=== PATIENT | female | born 1945 | race Caucasian/White ===

== ENCOUNTER → 2020-03-25 | Day surgery (SDC) | payer MEDICARE, OTHER ==
[~2020-03-25] MED LIST: ALBUTEROL2.5 MG/31 INH; ALENDRONATE SOD70 MG PO; ANORO ELLIPTA1 EACH INH; CELEXA 20 MG TA20 MG PO; DALIRESP500 MCG PO; IPRATROPIU0.2 MG/1 M INH; MONTELUKAST SODI4 M1 PO; NORCO 5-325 TA1 EAC2 PO; OMEPRAZOLE 20 M20 M1 PO; PROAIR DIGIHAL90 MCG INH; SIMVASTATIN80 MG PO; ZYRTEC10 M2 PO
--- NOTE | ~2020-03-25 | OP ---
[address] [address] OPERATIVE REPORT Name: NEGRO PIERCE Room: [facility]#: [id number] Admission: 03/25/20 Attend Phys: Italo Mccabe II Discharge: Date of : 45 Report #: [id number] THIS REPORT FOR: //name// cc: Arash Lucas Timothy J. ~ CC: Italo Lucas DATE OF SERVICE: 03/25/2020 PREOPERATIVE DIAGNOSIS: Right distal radius fracture, greater than 3 parts. POSTOPERATIVE DIAGNOSIS: Right distal radius fracture, greater than 3 parts. PROCEDURE: Right distal radius fracture, greater than 3 parts open reduction and internal fixation. SURGEON: Italo Mccabe II, DO EDUCATIONAL SPEECH LANGUAGE CLINICIAN: LEANN Johnson ANESTHESIA: Per operative record. ESTIMATED BLOOD LOSS: Minimal. ANTIBIOTICS: Per operative record. DRAINS: None. COMPLICATIONS: None. CONDITION: The patient is stable to recovery room. DESCRIPTION OF PROCEDURE: The patient was taken to the operative suite and placed supine on the operative table, given appropriate anesthesia. The patient had well-padded tourniquet applied to the affected upper extremity, which was inflated to 250 mmHg after Esmarch exsanguination for the duration of procedure. The arm was sterilely prepped and draped. Surgery began by incision of the FCR tendon. This was carried down to the subcutaneous tissues. The distal radius fracture was visualized with fluoroscopic evaluation and open reduction in near anatomic fashion was performed with multiple fracture fragments and held with Shandon and reduction forceps. ____ was then applied to the volar radius, secured utilizing the sliding hole with a nonlocking screw and visualized to be in an excellent position on fluoroscopy, placing locking screws to the plate and fracture fragments were secured in near anatomic alignment and ____. This was then assessed in the AP and lateral views [place] [address] OPERATIVE REPORT Name: NEGRO PIERCE Room: [facility]#: [id number] Admission: 03/25/20 Attend Phys: Italo Mccabe II Discharge: Date of : 45 Report #: [id number] with no violation of the joint capsule by any of the screws. Irrigation was then performed of the wound. It was then closed with Vicryl and Monocryl in running fashion. Sterile dressing and splint and Dermabond was applied. The patient transported to recovery room in stable condition. Counts were correct throughout the procedure. By: [id number] Mccabe II, DO /nt
[2020-03-25 08:49] LABS: HEMATOCRIT 37.6 % (37.0-47.0); MCH 31.3 pg (26.0-34.0); MCHC 34.5 g/dL (28.0-37.0); MCV 90.8 fL (80.0-100.0); RBC 4.14 mil/uL (4.20-5.00); WBC 11.8 thou/uL (4.0-11.0)
[2020-03-25 08:54] LABS: CALCIUM 8.5 mg/dL (8.5-10.1); CREATININE 0.8 mg/dL (0.6-1.3); POTASSIUM 3.9 mmol/L (3.5-5.1)
--- NOTE | 2020-03-25 09:46 | EKG ---
[place] [address] ELECTROCARDIOGRAM REPORT Name: MATEUSZ PIERCEParis CARDOSO Room: [facility]#: [id number] Admission: 03/25/20 Attend Phys: Italo Mccabe, Discharge: Date of : 45 Date of Service: 03/25/20832 Report #: [id number] THIS REPORT FOR: //name// [facility] Test Date: 2020-03-25 Test Time: 08:33:01 Pat Name: NEGRO PIERCE Department: Room: Gender: [employer]ation Equipment Operator: : 1945 Requested By: Italo Mccabe Order Number: [id number] Lexy MD: Randy Mckeon Measurements Intervals Shushan Rate: 61 P: 58 AL: 93 QRS: 61 QRSD: 94 T: 64 QT: 438 QTc: 442 Interpretive Statements Sinus rhythm Short AL interval No previous ECG available for comparison Electronically Signed On 03-25-2020 9:46:09 CDT by Randy Mckeon [email or web address] <ELECTRONICALLY SIGNED> By: Randy Mckeon MD, [facility] 03/25/2046 2 Randy Mckeon MD, FACC /EPI
== END | disposition home or self-care (01) ==
LOC: M.SUR 08:11
PROVIDERS: ATTEND Orthopaedic Surgery
DX: S52.571A Other intraarticular fracture of lower end of right radius, initial encounter for closed fracture (principal); M25.531 Pain in right wrist; Z98.890 Other specified postprocedural states; Z79.899 Other long term (current) drug therapy; Z20.828 Contact with and (suspected) exposure to other viral communicable diseases; X58.XXXA Exposure to other specified factors, initial encounter; Y93.89 Activity, other specified; Y92.89 Other specified places as the place of occurrence of the external cause; Y99.8 Other external cause status